=== PATIENT | male | born 1945 | race Caucasian/White ===

== ENCOUNTER 2017-10-05 10:20 | Emergency (ER) | payer OTHER ==
[~2017-10-05] VITALS: Ht 182.9 cm; Wt 82.0 kg
[~2017-10-05 10:20] MED LIST: ASPI-496 PO; CLOP75TA52; LOSA50TA2 PO; OMEP-110 PO; TRAM50TA2 PO
[2017-10-05 10:59] LABS: BASOPHILS # (AUTO) 0.01 x10^3/uL (0-0.1); BASOPHILS % (AUTO) 0 % (0-1); EOSINOPHILS # (AUTO) 0.03 x10^3/uL (0-0.4); EOSINOPHILS % (AUTO) 0 % (1-7); LYMPHOCYTES # (AUTO) 1.11 x10^3/uL (1-3.4); LYMPHOCYTES % (AUTO) 13 % (22-44); MD NO; MEAN CORPUSCULAR HEMOGLOBIN 32.8 pg (27.5-34.5); MEAN CORPUSCULAR HGB CONC 35.1 g/dL (33.2-36.2); MEAN CORPUSCULAR VOLUME 93.5 fL (81-97); MEAN PLATELET VOLUME 7.1 fL (7.4-10.4); MONOCYTES # (AUTO) 0.45 x10^3/uL (0.2-0.8); MONOCYTES % (AUTO) 5 % (2-9); NEUTROPHILS # (AUTO) 7.08 x10^3/uL (1.8-6.8); NEUTROPHILS % (AUTO) 82 % (42-75); PLATELET COUNT 398 x10^3/uL (130-400); RED BLOOD COUNT 4.79 x10^6/uL (4.38-5.82); RED CELL DISTRIBUTION WIDTH 12.9 % (9.4-14.8)
[2017-10-05] MEDS ORDERED: GABA300C10 PO (11:02)
[2017-10-05] MEDS ORDERED: AMLO10TA2 PO (11:02)
[2017-10-05] MEDS ORDERED: LOSA100T6 PO (11:02)
[2017-10-05 11:07] LABS: ANION GAP 10 mmol/L (5-15); CHLORIDE 94 mmol/L (98-107); CREATININE 0.94 mg/dL (0.7-1.3)
[2017-10-05] MEDS ORDERED: KETOROLAC 30 MG/1 ML ONE (11:43)
[2017-10-05 11:53] VITALS: BP 116/92
[2017-10-05] MEDS ORDERED: KETOROLAC 30 MG/1 ML IM ONE (12:00)
== END 2017-10-05 12:17 | disposition home or self-care (01) ==
LOC: ED 12:11
DX: G89.29 Other chronic pain (principal); M25.572 Pain in left ankle and joints of left foot; I10 Essential (primary) hypertension; F17.200 Nicotine dependence, unspecified, uncomplicated
CPT/HCPCS: 36415; 73610; 80048; 82040; 84550; 85025; 96372; 99285; J1885

== ENCOUNTER 2018-07-25 11:14 | Emergency (ER) | payer MEDICARE, OTHER ==
[~2018-07-25] VITALS: Ht 182.9 cm; Wt 75.9 kg
[~2018-07-25 11:14] MED LIST changes: +AMLO10TA8 PO; +GABA300C10 PO; +LOSA100T14 PO
[2018-07-25 11:24] VITALS: BP 157/97
[2018-07-25 12:20] LABS: BASOPHILS # (AUTO) 0.03 x10^3/uL (0-0.1); BASOPHILS % (AUTO) 0 % (0-1); EOSINOPHILS # (AUTO) 0.02 x10^3/uL (0-0.4); EOSINOPHILS % (AUTO) 0 % (1-7); LYMPHOCYTES # (AUTO) 1.63 x10^3/uL (1-3.4); LYMPHOCYTES % (AUTO) 14 % (22-44); MD NO; MEAN CORPUSCULAR HEMOGLOBIN 32.4 pg (27.5-34.5); MEAN CORPUSCULAR HGB CONC 33.8 g/dL (33.2-36.2); MEAN CORPUSCULAR VOLUME 95.8 fL (81-97); MEAN PLATELET VOLUME 7.2 fL (7.4-10.4); MONOCYTES % (AUTO) 7 % (2-9); NEUTROPHILS # (AUTO) 9.37 x10^3/uL (1.8-6.8); NEUTROPHILS % (AUTO) 79 % (42-75); PLATELET COUNT 378 x10^3/uL (130-400); RED BLOOD COUNT 4.96 x10^6/uL (4.38-5.82); RED CELL DISTRIBUTION WIDTH 13.9 % (9.4-14.8)
[2018-07-25 12:29] LABS: CHLORIDE 97 mmol/L (98-107)
[2018-07-25 12:36] LABS: ALANINE AMINOTRANSFERASE 25 U/L (12-78); ALBUMIN 3.9 g/dL (3.4-5.0); ALKALINE PHOSPHATASE 72 U/L (45-117); ANION GAP 8 mmol/L (5-15); BILIRUBIN,TOTAL 0.8 mg/dL (0.2-1.0); TOTAL PROTEIN 7.4 g/dL (6.4-8.2)
--- NOTE | 2018-07-25 13:10 | NUR ---
Received report from MOLLY Patel. All questions answered. Assuming care of pt. ANNIEN. No needs expressed.
--- NOTE | 2018-07-25 13:32 | NUR ---
Patient given discharge instructions and they have confirmed that they understand the instructions. Patient pushed in wheelchair by ED staff. Pt left with d/c paperwork, prescription, and all personal belongings.
== END 2018-07-25 13:35 | disposition home or self-care (01) ==
LOC: ED 13:33
DX: S92.355A Nondisplaced fracture of fifth metatarsal bone, left foot, initial encounter for closed fracture (principal); I10 Essential (primary) hypertension; F17.200 Nicotine dependence, unspecified, uncomplicated; W01.0XXA Fall on same level from slipping, tripping and stumbling without subsequent striking against object, initial encounter; Y93.89 Activity, other specified; Y92.002 Bathroom of unspecified non-institutional (private) residence as the place of occurrence of the external cause; Y99.8 Other external cause status
CPT/HCPCS: 36415; 80053; 85025; 99284

== ENCOUNTER 2018-07-31 08:44 | Emergency (ER) | payer MEDICARE ==
[~2018-07-31] VITALS: Ht 182.9 cm; Wt 76.0 kg
[2018-07-31] MEDS ORDERED: IBUPROFEN 200 MG TABLET PO ONE (10:30)
[2018-07-31] MEDS ORDERED: IBUPROFEN 200 MG TABLET ONE (10:31)
[2018-07-31 11:00] VITALS: BP 153/95
== END 2018-07-31 11:26 | disposition home or self-care (01) ==
LOC: ED 11:23
DX: M79.672 Pain in left foot (principal); I10 Essential (primary) hypertension; F17.200 Nicotine dependence, unspecified, uncomplicated
CPT/HCPCS: 99283

== ENCOUNTER 2019-02-03 11:08 | Inpatient (IN) | payer MEDICARE ==
[~2019-02-03] VITALS: Ht 182.9 cm; Wt 75.3 kg
--- NOTE | 2019-02-03 11:39 | NUR ---
pt biba to ed from home. c/o low back pain, left lower extrem weakness. Dr. Benítez at bedside for eval. weak L foot dorsiflexion. good rectal tone per md. plan for ct back. as
[2019-02-03] MEDS ORDERED: SODIUM CHLORIDE 0.9% 1,000 ML IV ONE (11:43)
[2019-02-03] MEDS ORDERED: MORPHINE SULFATE 4 MG/ML, 1ML ONE (11:56)
[2019-02-03] MEDS ORDERED: MORPHINE SULFATE 4 MG/ML, 1ML IVPush PRN (12:00)
[2019-02-03] MEDS ORDERED: SODIUM CHLORIDE FLUSH 10ML SYR IVF ONE (12:00)
--- NOTE | 2019-02-03 12:22 | NUR ---
labs sent, caregiver at bedside. per caregiver pt has low back pain x4 days, L ankle injury w/ pins x4 years, baseline limited movement in L foot.
--- NOTE | 2019-02-03 12:27 | NUR ---
TAKEN TO CT
[2019-02-03 12:32] LABS: BASOPHILS # (AUTO) 0.02 x10^3/uL (0-0.1); BASOPHILS % (AUTO) 0 % (0-1); EOSINOPHILS # (AUTO) 0.07 x10^3/uL (0-0.4); EOSINOPHILS % (AUTO) 1 % (1-7); LYMPHOCYTES % (AUTO) 9 % (22-44); MD NO; MEAN CORPUSCULAR HEMOGLOBIN 32.3 pg (27.5-34.5); MEAN CORPUSCULAR HGB CONC 33.6 g/dL (33.2-36.2); MEAN CORPUSCULAR VOLUME 95.8 fL (81-97); MEAN PLATELET VOLUME 7.7 fL (7.4-10.4); MONOCYTES # (AUTO) 0.68 x10^3/uL (0.2-0.8); MONOCYTES % (AUTO) 6 % (2-9); NEUTROPHILS # (AUTO) 8.96 x10^3/uL (1.8-6.8); NEUTROPHILS % (AUTO) 84 % (42-75); PLATELET COUNT 291 x10^3/uL (130-400); RED BLOOD COUNT 5.09 x10^6/uL (4.38-5.82); RED CELL DISTRIBUTION WIDTH 14.4 % (9.4-14.8)
[2019-02-03 12:43] LABS: ALBUMIN 3.6 g/dL (3.4-5.0); ANION GAP 9 mmol/L (5-15); CALCIUM 9.2 mg/dL (8.5-10.1); CHLORIDE 90 mmol/L (98-107); CREATININE 0.78 mg/dL (0.7-1.3)
[2019-02-03 12:45] LABS: ALANINE AMINOTRANSFERASE 26 U/L (12-78); ALKALINE PHOSPHATASE 91 U/L (45-117); BILIRUBIN,TOTAL 1.7 mg/dL (0.2-1.0); TOTAL PROTEIN 7.1 g/dL (6.4-8.2)
--- NOTE | 2019-02-03 12:52 | NUR ---
ALL RESULTS BACK AT THIS TIME, CHART UP FOR RECHECK
--- NOTE | 2019-02-03 13:03 | NUR ---
T12 COMPRESSION FRACTURE. THIS IS PARTIALLY SEEN. L3 AND L4 MILD COMPRESSION FRACTURES. SEVERE DEGENERATIVE DISC DISEASE.
--- NOTE | 2019-02-03 13:03 | NUR ---
pt to be admitted, pt aware and agrees.
--- NOTE | 2019-02-03 14:22 | NUR ---
Dr. Webb at bedside for eval.
[2019-02-03 14:56] VITALS: BP 161/96
[2019-02-03] MEDS ORDERED: SODIUM CHLORIDE 0.9% 1,000 ML IV SCH (15:06)
[2019-02-03] MEDS ORDERED: PROMETHAZINE 25 MG/ML, 1ML IM PRN (15:30)
[2019-02-03] MEDS ORDERED: LABETALOL 5MG/ML, 20ML IVPush PRN (15:30)
[2019-02-03] MEDS ORDERED: LIDODERM 5% PATCH TD PRN (15:30)
[2019-02-03] MEDS ORDERED: ONDANSETRON 2MG/ML, 2ML IVPush PRN (15:30)
[2019-02-03] MEDS ORDERED: METHOCARBAMOL 500 MG TABLET PO PRN (15:30)
[2019-02-03] MEDS ORDERED: ACETAMINOPHEN 325 MG TABLET PO PRN (15:30)
[2019-02-03] MEDS ORDERED: ENALAPRILAT 1.25 MG/ML, 2ML IVPush PRN (15:30)
[2019-02-03] MEDS: THIAMINE 100MG TABLET PO SCH (17:46)
[2019-02-03] MEDS: ENOXAPARIN 40 MG/0.4 ML SQ SCH (17:46)
[2019-02-03] MEDS: GABAPENTIN 100 MG CAPSULE PO SCH ×2 (17:47→21:54)
[2019-02-03] MEDS ORDERED: MAGNESIUM CITRATE 300ML ORAL SOL PO ONE (18:30)
[2019-02-03 18:48] VITALS: BP 152/78
[2019-02-04 01:18] VITALS: BP 130/77
[2019-02-04 05:16] LABS: BASOPHILS # (AUTO) 0.02 x10^3/uL (0-0.1); BASOPHILS % (AUTO) 0 % (0-1); EOSINOPHILS # (AUTO) 0.13 x10^3/uL (0-0.4); EOSINOPHILS % (AUTO) 2 % (1-7); LYMPHOCYTES # (AUTO) 1.26 x10^3/uL (1-3.4); LYMPHOCYTES % (AUTO) 15 % (22-44); MD NO; MEAN CORPUSCULAR HEMOGLOBIN 32.2 pg (27.5-34.5); MEAN CORPUSCULAR HGB CONC 33.3 g/dL (33.2-36.2); MEAN CORPUSCULAR VOLUME 96.5 fL (81-97); MEAN PLATELET VOLUME 7.7 fL (7.4-10.4); MONOCYTES # (AUTO) 0.69 x10^3/uL (0.2-0.8); MONOCYTES % (AUTO) 8 % (2-9); NEUTROPHILS # (AUTO) 6.35 x10^3/uL (1.8-6.8); NEUTROPHILS % (AUTO) 75 % (42-75); PLATELET COUNT 271 x10^3/uL (130-400); RED BLOOD COUNT 4.48 x10^6/uL (4.38-5.82); RED CELL DISTRIBUTION WIDTH 14.2 % (9.4-14.8)
[2019-02-04 05:25] LABS: ANION GAP 8 mmol/L (5-15); CALCIUM 8.7 mg/dL (8.5-10.1); CHLORIDE 96 mmol/L (98-107)
[2019-02-04 05:30] LABS: ALANINE AMINOTRANSFERASE 25 U/L (12-78); ALKALINE PHOSPHATASE 76 U/L (45-117); BILIRUBIN,TOTAL 1.4 mg/dL (0.2-1.0); CREATININE 0.72 mg/dL (0.7-1.3)
[2019-02-04 08:27] VITALS: BP 135/82
[2019-02-04] MEDS: OMEPRAZOLE 20 MG CAPSULE.DR PO SCH (09:49)
[2019-02-04] MEDS: AMLODIPINE 5 MG TABLET PO SCH (09:50)
[2019-02-04] MEDS: MULTIVITAMIN 1 TABLET PO SCH (09:50)
[2019-02-04] MEDS: LOSARTAN 50MG TABLET PO SCH (09:50)
[2019-02-04] MEDS: SENNA/DOCUSATE TABLET PO SCH (09:50)
[2019-02-04] MEDS: GABAPENTIN 100 MG CAPSULE PO SCH ×3 (09:50→20:56)
[2019-02-04] MEDS: THIAMINE 100MG TABLET PO SCH (09:50)
[2019-02-04] MEDS: ASPIRIN 81 MG TABLET EC PO SCH (09:50)
[2019-02-04] MEDS: FOLIC ACID 1 MG TABLET PO SCH (09:50)
[2019-02-04] MEDS: ENOXAPARIN 40 MG/0.4 ML SQ SCH (15:04)
[2019-02-04 15:30] VITALS: BP 133/76
[2019-02-04] MEDS: POLYETHYLENE GLYCOL 17 GM PACKET PO PRN (17:34)
[2019-02-04] MEDS: LACTULOSE 10 GM/15 ML UDC PO PRN (17:34)
[2019-02-04 18:37] VITALS: BP 146/87
[2019-02-05 01:16] VITALS: BP 155/75
[2019-02-05 05:59] LABS: BASOPHILS # (AUTO) 0.03 x10^3/uL (0-0.1); BASOPHILS % (AUTO) 0 % (0-1); EOSINOPHILS # (AUTO) 0.17 x10^3/uL (0-0.4); EOSINOPHILS % (AUTO) 2 % (1-7); LYMPHOCYTES # (AUTO) 1.25 x10^3/uL (1-3.4); LYMPHOCYTES % (AUTO) 14 % (22-44); MD NO; MEAN CORPUSCULAR HEMOGLOBIN 32.4 pg (27.5-34.5); MEAN CORPUSCULAR HGB CONC 33.1 g/dL (33.2-36.2); MEAN CORPUSCULAR VOLUME 97.7 fL (81-97); MEAN PLATELET VOLUME 7.5 fL (7.4-10.4); MONOCYTES % (AUTO) 10 % (2-9); NEUTROPHILS # (AUTO) 6.85 x10^3/uL (1.8-6.8); NEUTROPHILS % (AUTO) 75 % (42-75); PLATELET COUNT 255 x10^3/uL (130-400); RED BLOOD COUNT 4.25 x10^6/uL (4.38-5.82); RED CELL DISTRIBUTION WIDTH 14.5 % (9.4-14.8)
[2019-02-05 06:05] LABS: ANION GAP 8 mmol/L (5-15); CALCIUM 8.6 mg/dL (8.5-10.1); CHLORIDE 99 mmol/L (98-107); CREATININE 0.67 mg/dL (0.7-1.3)
[2019-02-05 07:35] VITALS: BP 147/84
[2019-02-05] MEDS: ASPIRIN 81 MG TABLET EC PO SCH (09:55)
[2019-02-05] MEDS: LOSARTAN 50MG TABLET PO SCH (09:55)
[2019-02-05] MEDS: THIAMINE 100MG TABLET PO SCH (09:55)
[2019-02-05] MEDS: GABAPENTIN 100 MG CAPSULE PO SCH ×3 (09:55→20:34)
[2019-02-05] MEDS: AMLODIPINE 5 MG TABLET PO SCH (09:55)
[2019-02-05] MEDS: SENNA/DOCUSATE TABLET PO SCH (09:55)
[2019-02-05] MEDS: FOLIC ACID 1 MG TABLET PO SCH (09:56)
[2019-02-05] MEDS: OMEPRAZOLE 20 MG CAPSULE.DR PO SCH (09:56)
[2019-02-05] MEDS: MULTIVITAMIN 1 TABLET PO SCH (09:56)
[2019-02-05 13:30] VITALS: BP 164/84
[2019-02-05] MEDS: BISACODYL 10 MG SUPP PR PRN (13:37)
[2019-02-05] MEDS: POLYETHYLENE GLYCOL 17 GM PACKET PO PRN (13:37)
[2019-02-05] MEDS: LACTULOSE 10 GM/15 ML UDC PO PRN (13:37)
[2019-02-05] MEDS: ENOXAPARIN 40 MG/0.4 ML SQ SCH (16:08)
[2019-02-05] MEDS ORDERED: MORPHINE SULFATE 4 MG/ML, 1ML IVPush PRN (18:30)
[2019-02-05 19:12] VITALS: BP 160/82
[2019-02-06 01:39] VITALS: BP 155/79
[2019-02-06 07:40] VITALS: BP 158/80
[2019-02-06] MEDS: MULTIVITAMIN 1 TABLET PO SCH (09:23)
[2019-02-06] MEDS: ASPIRIN 81 MG TABLET EC PO SCH (09:23)
[2019-02-06] MEDS: FOLIC ACID 1 MG TABLET PO SCH (09:24)
[2019-02-06] MEDS: AMLODIPINE 5 MG TABLET PO SCH (09:24)
[2019-02-06] MEDS: GABAPENTIN 100 MG CAPSULE PO SCH ×3 (09:24→20:28)
[2019-02-06] MEDS: THIAMINE 100MG TABLET PO SCH (09:24)
[2019-02-06] MEDS: LOSARTAN 50MG TABLET PO SCH (09:24)
[2019-02-06] MEDS: SENNA/DOCUSATE TABLET PO SCH (09:24)
[2019-02-06] MEDS: OMEPRAZOLE 20 MG CAPSULE.DR PO SCH (09:24)
[2019-02-06] MEDS: ENOXAPARIN 40 MG/0.4 ML SQ SCH (10:40)
[2019-02-06 13:48] VITALS: BP 151/73
[2019-02-06 18:52] VITALS: BP 164/79
[2019-02-07 01:07] VITALS: BP 147/93
[2019-02-07 07:10] VITALS: BP 162/76
[2019-02-07] MEDS: MULTIVITAMIN 1 TABLET PO SCH (08:33)
[2019-02-07] MEDS: LOSARTAN 50MG TABLET PO SCH (08:33)
[2019-02-07] MEDS: OMEPRAZOLE 20 MG CAPSULE.DR PO SCH (08:33)
[2019-02-07] MEDS: FOLIC ACID 1 MG TABLET PO SCH (08:33)
[2019-02-07] MEDS: AMLODIPINE 5 MG TABLET PO SCH (08:33)
[2019-02-07] MEDS: GABAPENTIN 100 MG CAPSULE PO SCH ×3 (08:33→21:31)
[2019-02-07] MEDS: THIAMINE 100MG TABLET PO SCH (08:33)
[2019-02-07] MEDS: ASPIRIN 81 MG TABLET EC PO SCH (08:33)
[2019-02-07] MEDS: SENNA/DOCUSATE TABLET PO SCH (09:00)
[2019-02-07 14:00] VITALS: BP 158/82
[2019-02-07] MEDS: ENOXAPARIN 40 MG/0.4 ML SQ SCH ×2 (15:30→16:34)
[2019-02-07 19:44] VITALS: BP 156/92
[2019-02-08 01:10] VITALS: BP 163/84
[2019-02-08 05:09] LABS: BASOPHILS % (AUTO) 0 % (0-1); EOSINOPHILS # (AUTO) 0.08 x10^3/uL (0-0.4); EOSINOPHILS % (AUTO) 1 % (1-7); LYMPHOCYTES # (AUTO) 0.96 x10^3/uL (1-3.4); LYMPHOCYTES % (AUTO) 9 % (22-44); MD NO; MEAN CORPUSCULAR HEMOGLOBIN 32.2 pg (27.5-34.5); MEAN CORPUSCULAR HGB CONC 33.1 g/dL (33.2-36.2); MEAN CORPUSCULAR VOLUME 97.3 fL (81-97); MEAN PLATELET VOLUME 7.5 fL (7.4-10.4); MONOCYTES # (AUTO) 0.67 x10^3/uL (0.2-0.8); MONOCYTES % (AUTO) 6 % (2-9); NEUTROPHILS # (AUTO) 9.61 x10^3/uL (1.8-6.8); NEUTROPHILS % (AUTO) 85 % (42-75); PLATELET COUNT 298 x10^3/uL (130-400); RED BLOOD COUNT 4.54 x10^6/uL (4.38-5.82)
[2019-02-08 05:15] LABS: ALBUMIN 2.8 g/dL (3.4-5.0); ANION GAP 7 mmol/L (5-15); CALCIUM 8.7 mg/dL (8.5-10.1); CHLORIDE 98 mmol/L (98-107)
[2019-02-08 05:18] LABS: ALANINE AMINOTRANSFERASE 23 U/L (12-78); ALKALINE PHOSPHATASE 88 U/L (45-117); BILIRUBIN,TOTAL 1.3 mg/dL (0.2-1.0); CREATININE 0.64 mg/dL (0.7-1.3); TOTAL PROTEIN 6.3 g/dL (6.4-8.2)
[2019-02-08 08:24] VITALS: BP 178/68
[2019-02-08] MEDS ORDERED: POTASSIUM CHLORIDE 40 MEQ in SODIUM CHLORIDE 0.9% 500 ML IV ONE (08:30)
[2019-02-08] MEDS: ASPIRIN 81 MG TABLET EC PO SCH (08:51)
[2019-02-08] MEDS: LOSARTAN 50MG TABLET PO SCH (08:51)
[2019-02-08] MEDS: FOLIC ACID 1 MG TABLET PO SCH (08:51)
[2019-02-08] MEDS: GABAPENTIN 100 MG CAPSULE PO SCH ×3 (08:52→20:00)
[2019-02-08] MEDS: AMLODIPINE 5 MG TABLET PO SCH (08:52)
[2019-02-08] MEDS ORDERED: FENTANYL PF 100 MCG/2ML ONE ×2 (08:55→09:39)
[2019-02-08] MEDS ORDERED: PROPOFOL 50 ML ONE (08:55)
[2019-02-08] MEDS ORDERED: ROCURONIUM 10MG/ML,5ML ONE (08:56)
[2019-02-08] MEDS ORDERED: SUCCINYLCHOLINE 20 MG/ML, 10ML ONE (08:56)
[2019-02-08] MEDS ORDERED: NEOSTIGMINE 1 MG/ML, 10ML ONE (08:56)
[2019-02-08] MEDS ORDERED: ONDANSETRON 2MG/ML, 2ML ONE (08:56)
[2019-02-08] MEDS ORDERED: GLYCOPYRROLATE 0.2MG/1ML, 5ML ONE (08:56)
[2019-02-08] MEDS ORDERED: DEXAMETHASONE 4 MG/ML, 1ML ONE (08:56)
[2019-02-08] MEDS ORDERED: PROPOFOL 10 MG/ML, 20ML ONE (08:56)
[2019-02-08] MEDS ORDERED: CEFAZOLIN 1,000 MG ONE (08:56)
[2019-02-08] MEDS: THIAMINE 100MG TABLET PO SCH (08:58)
[2019-02-08] MEDS: SENNA/DOCUSATE TABLET PO SCH (08:58)
[2019-02-08] MEDS: LACTOBACILLUS CHEW TABLET PO SCH ×3 (08:58→20:00)
[2019-02-08] MEDS: OMEPRAZOLE 20 MG CAPSULE.DR PO SCH (08:58)
[2019-02-08] MEDS: MULTIVITAMIN 1 TABLET PO SCH (08:58)
[2019-02-08] MEDS ORDERED: LIDOCAINE-MPF 2% ,5ML ONE (08:59)
[2019-02-08] MEDS ORDERED: SODIUM CHLORIDE 0.9% PF 10ML ONE (08:59)
[2019-02-08] MEDS ORDERED: KETOROLAC 30 MG/1 ML ONE (09:45)
[2019-02-08] MEDS ORDERED: EPINEPHRINE 1 MG/ML, 1ML ONE (09:53)
[2019-02-08] MEDS ORDERED: BUPIVACAINE/PF 0.5% ONE (09:53)
[2019-02-08] MEDS ORDERED: PHENYLEPHRINE 10 MG/ML ONE (10:07)
[2019-02-08] MEDS ORDERED: BUPIVACAINE/PF-EPI 0.5% 1:200K INFIL ONE (10:12)
[2019-02-08] MEDS ORDERED: LABETALOL 5MG/ML, 20ML IV PRN (11:00)
[2019-02-08] MEDS ORDERED: hydrALAzine 20 MG/ML, 1ML IV PRN (11:00)
[2019-02-08] MEDS ORDERED: OXYcodone 5 MG/5 ML ORAL.SOL UDC PO PRN (11:00)
[2019-02-08] MEDS ORDERED: ACETAMINOPHEN 325 MG TABLET PO PRN (11:00)
[2019-02-08] MEDS ORDERED: ONDANSETRON 2MG/ML, 2ML IV PRN (11:00)
[2019-02-08] MEDS ORDERED: EPHEDRINE 50 MG/ML, 1ML IVPush PRN (11:00)
[2019-02-08] MEDS ORDERED: PROMETHAZINE 25 MG/ML, 1ML IV PRN (11:00)
[2019-02-08] MEDS ORDERED: FENTANYL PF 100 MCG/2ML IV PRN (11:00)
[2019-02-08] MEDS ORDERED: HYDROmorphone 2 MG/ML, 1ML IVPush PRN (11:00)
[2019-02-08] MEDS ORDERED: MEPERIDINE/PF 25MG/ML,1ML IVPush PRN (11:00)
[2019-02-08] MEDS ORDERED: MORPHINE SULFATE 4 MG/ML, 1ML IVPush PRN (12:30)
[2019-02-08 12:45] VITALS: BP 152/77
[2019-02-08] MEDS: ENOXAPARIN 40 MG/0.4 ML SQ SCH (13:47)
[2019-02-08] MEDS: ACETAMINOPHEN 325 MG TABLET PO SCH ×2 (14:04→19:41)
[2019-02-08 14:17] VITALS: BP 123/71
[2019-02-08 19:00] VITALS: BP 133/79
[2019-02-08] MEDS: ATORVASTATIN 40 MG TABLET PO SCH (20:00)
[2019-02-09 00:47] VITALS: BP 146/83
[2019-02-09] MEDS: ACETAMINOPHEN 325 MG TABLET PO SCH ×4 (02:00→21:59)
[2019-02-09 04:40] LABS: ANION GAP 7 mmol/L (5-15); CALCIUM 8.7 mg/dL (8.5-10.1); CHLORIDE 101 mmol/L (98-107)
[2019-02-09 04:41] LABS: CREATININE 0.72 mg/dL (0.7-1.3)
[2019-02-09] MEDS: ENOXAPARIN 40 MG/0.4 ML SQ SCH (05:28)
[2019-02-09 06:55] VITALS: BP 156/84
[2019-02-09] MEDS: SODIUM CHLORIDE 0.9% 1,000 ML IV SCH ×2 (09:18→23:48)
[2019-02-09] MEDS: ASPIRIN 81 MG TABLET EC PO SCH (09:18)
[2019-02-09] MEDS: GABAPENTIN 100 MG CAPSULE PO SCH ×3 (09:18→21:59)
[2019-02-09] MEDS: THIAMINE 100MG TABLET PO SCH (09:18)
[2019-02-09] MEDS: MULTIVITAMIN 1 TABLET PO SCH (09:18)
[2019-02-09] MEDS: FOLIC ACID 1 MG TABLET PO SCH (09:18)
[2019-02-09] MEDS: LACTOBACILLUS CHEW TABLET PO SCH ×3 (09:18→21:59)
[2019-02-09] MEDS: CARVEDILOL 3.125 MG TABLET PO SCH ×2 (09:18→17:45)
[2019-02-09] MEDS: SENNA/DOCUSATE TABLET PO SCH (09:18)
[2019-02-09] MEDS: OMEPRAZOLE 20 MG CAPSULE.DR PO SCH (09:18)
[2019-02-09] MEDS: LOSARTAN 50MG TABLET PO SCH (09:19)
[2019-02-09 14:09] VITALS: BP 137/81
[2019-02-09 18:59] VITALS: BP 154/74
[2019-02-09] MEDS: ATORVASTATIN 40 MG TABLET PO SCH (21:59)
[2019-02-10 01:12] VITALS: BP 135/81
[2019-02-10 04:52] VITALS: BP 171/87
[2019-02-10] MEDS: ENOXAPARIN 40 MG/0.4 ML SQ SCH (04:57)
[2019-02-10] MEDS: CARVEDILOL 3.125 MG TABLET PO SCH ×2 (04:57→16:55)
[2019-02-10] MEDS: ACETAMINOPHEN 325 MG TABLET PO SCH ×4 (04:57→21:45)
[2019-02-10 05:06] LABS: BASOPHILS # (AUTO) 0.04 x10^3/uL (0-0.1); BASOPHILS % (AUTO) 0 % (0-1); EOSINOPHILS % (AUTO) 2 % (1-7); LYMPHOCYTES # (AUTO) 1.47 x10^3/uL (1-3.4); LYMPHOCYTES % (AUTO) 15 % (22-44); MD NO; MEAN CORPUSCULAR HEMOGLOBIN 32.5 pg (27.5-34.5); MEAN CORPUSCULAR HGB CONC 33.3 g/dL (33.2-36.2); MEAN CORPUSCULAR VOLUME 97.7 fL (81-97); MEAN PLATELET VOLUME 7.4 fL (7.4-10.4); MONOCYTES # (AUTO) 0.74 x10^3/uL (0.2-0.8); MONOCYTES % (AUTO) 7 % (2-9); NEUTROPHILS # (AUTO) 7.72 x10^3/uL (1.8-6.8); NEUTROPHILS % (AUTO) 76 % (42-75); PLATELET COUNT 358 x10^3/uL (130-400); RED BLOOD COUNT 4.38 x10^6/uL (4.38-5.82); RED CELL DISTRIBUTION WIDTH 14.4 % (9.4-14.8)
[2019-02-10 05:11] LABS: CHLORIDE 98 mmol/L (98-107)
[2019-02-10 05:15] LABS: ANION GAP 7 mmol/L (5-15); CALCIUM 8.7 mg/dL (8.5-10.1); CREATININE 0.71 mg/dL (0.7-1.3)
[2019-02-10 07:39] VITALS: BP 160/88
[2019-02-10] MEDS ORDERED: POTASSIUM CHLORIDE 20 MEQ TAB.ER.PRT PO ONE (08:00)
[2019-02-10] MEDS ORDERED: LOSARTAN 25MG TABLET ONE (08:38)
[2019-02-10] MEDS: THIAMINE 100MG TABLET PO SCH (08:40)
[2019-02-10] MEDS: OMEPRAZOLE 20 MG CAPSULE.DR PO SCH (08:41)
[2019-02-10] MEDS: ISOSORBIDE DINITRATE 10 MG TABLET PO SCH ×3 (08:41→20:15)
[2019-02-10] MEDS: MULTIVITAMIN 1 TABLET PO SCH (08:42)
[2019-02-10] MEDS: FOLIC ACID 1 MG TABLET PO SCH (08:42)
[2019-02-10] MEDS: SENNA/DOCUSATE TABLET PO SCH (08:42)
[2019-02-10] MEDS: GABAPENTIN 100 MG CAPSULE PO SCH ×3 (08:42→20:15)
[2019-02-10] MEDS: LACTOBACILLUS CHEW TABLET PO SCH ×3 (08:42→20:15)
[2019-02-10] MEDS: ASPIRIN 81 MG TABLET EC PO SCH (08:44)
[2019-02-10] MEDS: LOSARTAN 50MG TABLET PO SCH (08:44)
[2019-02-10] MEDS: LACTULOSE 10 GM/15 ML UDC PO PRN (08:45)
[2019-02-10] MEDS ORDERED: ISOS10TA2 PO (10:00)
[2019-02-10] MEDS ORDERED: ACID1TAB7 PO (10:00)
[2019-02-10] MEDS ORDERED: THIA100T67 PO (10:00)
[2019-02-10] MEDS ORDERED: CARV3.1212 PO (10:00)
[2019-02-10] MEDS ORDERED: ATOR40TA78 PO (10:00)
[2019-02-10] MEDS ORDERED: ACET325T26 PO (10:00)
[2019-02-10] MEDS ORDERED: ALEN10TA7 PO (10:16)
[2019-02-10] MEDS ORDERED: CALC1TAB68 PO (10:16)
[2019-02-10 14:00] VITALS: BP 136/74
[2019-02-10] MEDS: SODIUM CHLORIDE 0.9% 1,000 ML IV SCH (16:56)
[2019-02-10] MEDS: BISACODYL 10 MG SUPP PR PRN (17:45)
[2019-02-10 18:54] VITALS: BP 136/75
[2019-02-10] MEDS: ATORVASTATIN 40 MG TABLET PO SCH (20:15)
[2019-02-11 01:14] VITALS: BP 147/75
[2019-02-11] MEDS: ACETAMINOPHEN 325 MG TABLET PO SCH ×4 (03:38→20:48)
[2019-02-11] MEDS: ENOXAPARIN 40 MG/0.4 ML SQ SCH (05:38)
[2019-02-11] MEDS: CARVEDILOL 3.125 MG TABLET PO SCH ×2 (05:38→18:06)
[2019-02-11 07:29] VITALS: BP 157/85
[2019-02-11] MEDS ORDERED: POTASSIUM CHLORIDE 20 MEQ TAB.ER.PRT PO ONE (08:00)
[2019-02-11] MEDS: THIAMINE 100MG TABLET PO SCH (08:07)
[2019-02-11] MEDS: OMEPRAZOLE 20 MG CAPSULE.DR PO SCH (08:07)
[2019-02-11] MEDS: ISOSORBIDE DINITRATE 10 MG TABLET PO SCH ×3 (08:07→20:48)
[2019-02-11] MEDS: GABAPENTIN 100 MG CAPSULE PO SCH ×3 (08:07→20:48)
[2019-02-11] MEDS: MULTIVITAMIN 1 TABLET PO SCH (08:07)
[2019-02-11] MEDS: FOLIC ACID 1 MG TABLET PO SCH (08:07)
[2019-02-11] MEDS: ASPIRIN 81 MG TABLET EC PO SCH (08:07)
[2019-02-11] MEDS: LACTOBACILLUS CHEW TABLET PO SCH ×3 (08:08→20:48)
[2019-02-11] MEDS: SENNA/DOCUSATE TABLET PO SCH (08:08)
[2019-02-11] MEDS: LOSARTAN 50MG TABLET PO SCH (08:35)
[2019-02-11 13:31] VITALS: BP 159/79
[2019-02-11 19:19] VITALS: BP_SYST 174; BP_SYST 177; BP_DIAS 80; BP_DIAS 81
[2019-02-11] MEDS: ATORVASTATIN 40 MG TABLET PO SCH (20:48)
[2019-02-12 01:16] VITALS: BP 154/78
[2019-02-12] MEDS: ACETAMINOPHEN 325 MG TABLET PO SCH ×3 (02:52→14:53)
[2019-02-12] MEDS: SODIUM CHLORIDE 0.9% 1,000 ML IV SCH (04:52)
[2019-02-12] MEDS: CARVEDILOL 3.125 MG TABLET PO SCH (06:13)
[2019-02-12] MEDS: ENOXAPARIN 40 MG/0.4 ML SQ SCH (06:18)
[2019-02-12 07:39] VITALS: BP 146/78
[2019-02-12] MEDS: OMEPRAZOLE 20 MG CAPSULE.DR PO SCH (08:40)
[2019-02-12] MEDS: GABAPENTIN 100 MG CAPSULE PO SCH ×2 (08:41→14:54)
[2019-02-12] MEDS: FOLIC ACID 1 MG TABLET PO SCH (08:41)
[2019-02-12] MEDS: SENNA/DOCUSATE TABLET PO SCH (08:41)
[2019-02-12] MEDS: MULTIVITAMIN 1 TABLET PO SCH (08:41)
[2019-02-12] MEDS: LACTOBACILLUS CHEW TABLET PO SCH ×2 (08:41→14:53)
[2019-02-12] MEDS: ISOSORBIDE DINITRATE 10 MG TABLET PO SCH ×2 (08:41→14:53)
[2019-02-12] MEDS: ASPIRIN 81 MG TABLET EC PO SCH (08:41)
[2019-02-12] MEDS: THIAMINE 100MG TABLET PO SCH (08:41)
[2019-02-12 08:58] VITALS: BP 142/78
[2019-02-12] MEDS: LOSARTAN 50MG TABLET PO SCH (08:58)
[2019-02-12] MEDS ORDERED: SODIUM CHLORIDE 0.9% 1,000 ML IV SCH (09:00)
[2019-02-12 13:41] VITALS: BP 150/87
== END 2019-02-12 17:09 | DRG 478 ==
LOC: ED 12:58 → EDIP 13:02 → INTOOBSV 13:02 → UNDOADMOB 13:02 → ED 13:29 → SUATTDRO 14:21 → 3N 14:32 → EDIP 14:32 → 3N 15:06 → OBSVTOIN 02-05 11:30 → 4NE 02-08 11:53
PROVIDERS: ADMIT Internal Medicine; ATTEND Internal Medicine
PROC: 0Q903ZX Drainage of Lumbar Vertebra, Percutaneous Approach, Diagnostic (ICD-10-PCS; 2019-02-08)
PROC: 0PU43JZ Supplement Thoracic Vertebra with Synthetic Substitute, Percutaneous Approach (ICD-10-PCS; 2019-02-08)
PROC: 0QS03ZZ Reposition Lumbar Vertebra, Percutaneous Approach (ICD-10-PCS; 2019-02-08)
PROC: 4A11X4G Monitoring of Peripheral Nervous Electrical Activity, Intraoperative, External Approach (ICD-10-PCS; 2019-02-08)
PROC: 0QU03JZ Supplement Lumbar Vertebra with Synthetic Substitute, Percutaneous Approach (ICD-10-PCS; 2019-02-08)
PROC: 0PS43ZZ Reposition Thoracic Vertebra, Percutaneous Approach (ICD-10-PCS; principal; 2019-02-08 09:00)
DX: M80.08XA Age-related osteoporosis with current pathological fracture, vertebra(e), initial encounter for fracture (principal); I47.1 Supraventricular tachycardia; E87.1 Hypo-osmolality and hyponatremia; E87.6 Hypokalemia; F10.20 Alcohol dependence, uncomplicated; F17.210 Nicotine dependence, cigarettes, uncomplicated; G62.9 Polyneuropathy, unspecified; G89.29 Other chronic pain; I10 Essential (primary) hypertension; I16.0 Hypertensive urgency; I73.9 Peripheral vascular disease, unspecified; J44.9 Chronic obstructive pulmonary disease, unspecified; K59.00 Constipation, unspecified; M21.372 Foot drop, left foot; M48.04 Spinal stenosis, thoracic region; M48.061 Spinal stenosis, lumbar region without neurogenic claudication; M54.16 Radiculopathy, lumbar region; Z82.49 Family history of ischemic heart disease and other diseases of the circulatory system; Z83.3 Family history of diabetes mellitus; Z85.46 Personal history of malignant neoplasm of prostate; Z92.3 Personal history of irradiation
CPT/HCPCS: 36415; 72072; 72100; 72131; 72148; 80048; 80053; 83735; 84100; 85025; 88307; 88311; 99285; C1713; G0378; J0171; J0690; J1100; J1650; J1885; J2405; J2704; J2710; J3010; J0330; J2270; J2370; J7030

== ENCOUNTER 2019-03-05 20:37 | Emergency (ER) | payer MEDICARE ==
[~2019-03-05] VITALS: Ht 182.9 cm; Wt 74.0 kg
[~2019-03-05 20:37] MED LIST changes: +ACET325T26 PO; +ACID1TAB7 PO; +ALEN10TA7 PO; +ATOR40TA78 PO; +CALC1TAB68 PO; +CARV3.1212 PO; +ISOS10TA2 PO; +THIA100T67 PO
--- NOTE | 2019-03-05 20:48 | NUR ---
BIB [facility]. PT C/O CONSTIPATION X4 DAYS. HAS TAKEN STOOL SOFTENERS W/O SUCCESS. ACUTE ON CHRONIC LBP. CONNECTED TO MONITORING. CALL LIGHT IN REACH. AWAITNG ORDERS AT THIS TIME.
--- NOTE | 2019-03-05 21:31 | NUR ---
PT AMBULATED TO RESTROOM WITH STEADY GAIT AND WALKER.
[2019-03-05] MEDS ORDERED: ACETAMINOPHEN 325 MG TABLET PO ONE (22:00)
--- NOTE | 2019-03-05 22:08 | NUR ---
IV START. LABS DRAWN. PT RESTING COMFORTABLY ON GURNEY. KAJAL.
--- NOTE | 2019-03-05 22:09 | NUR ---
CT PENDING LAB/CREATINE.
[2019-03-05] MEDS ORDERED: ACETAMINOPHEN 325 MG TABLET ONE (22:10)
--- NOTE | 2019-03-05 22:13 | NUR ---
MEDS ADMIN PER APR.
[2019-03-05 22:22] LABS: BASOPHILS # (AUTO) 0.03 x10^3/uL (0-0.1); BASOPHILS % (AUTO) 0 % (0-1); EOSINOPHILS # (AUTO) 0.13 x10^3/uL (0-0.4); EOSINOPHILS % (AUTO) 1 % (1-7); LYMPHOCYTES # (AUTO) 1.58 x10^3/uL (1-3.4); LYMPHOCYTES % (AUTO) 11 % (22-44); MD NO; MEAN CORPUSCULAR HEMOGLOBIN 31.9 pg (27.5-34.5); MEAN CORPUSCULAR HGB CONC 33.5 g/dL (33.2-36.2); MEAN PLATELET VOLUME 7.9 fL (7.4-10.4); MONOCYTES # (AUTO) 0.86 x10^3/uL (0.2-0.8); MONOCYTES % (AUTO) 6 % (2-9); NEUTROPHILS # (AUTO) 12.47 x10^3/uL (1.8-6.8); NEUTROPHILS % (AUTO) 83 % (42-75); PLATELET COUNT 261 x10^3/uL (130-400); RED BLOOD COUNT 4.95 x10^6/uL (4.38-5.82); RED CELL DISTRIBUTION WIDTH 13.8 % (9.4-14.8)
[2019-03-05 22:32] LABS: ALANINE AMINOTRANSFERASE 21 U/L (12-78); ALBUMIN 3.4 g/dL (3.4-5.0); ANION GAP 8 mmol/L (5-15); CALCIUM 9.2 mg/dL (8.5-10.1); CHLORIDE 97 mmol/L (98-107); CREATININE 0.69 mg/dL (0.7-1.3)
[2019-03-05 22:34] LABS: ALKALINE PHOSPHATASE 159 U/L (45-117); BILIRUBIN,TOTAL 0.7 mg/dL (0.2-1.0)
--- NOTE | 2019-03-05 22:43 | NUR ---
CT NOTIFIED THAT LAB RESULTS ARE BACK.
--- NOTE | 2019-03-05 23:09 | NUR ---
PT AMBULATED TO RESTROOM AND BACK. PT TAKEN TO CT.
--- NOTE | 2019-03-05 23:10 | NUR ---
RECEIVED NEW ORDER FOR UA.
[2019-03-05] MEDS ORDERED: OMNIPAQUE 350 MG/ML, 100ML BOTTLE ONE (23:22)
--- NOTE | 2019-03-05 23:22 | NUR ---
PT BACK FROM CT. PT NOTIFIED OF NEED FOR URINE SAMPLE.
--- NOTE | 2019-03-06 00:19 | NUR ---
Pt ambulated to restroom for urine sample. Urine sent. Pt returned to [facility]. Warm blankets provided. Call light within reach.
[2019-03-06 00:21] VITALS: BP 141/88
[2019-03-06] MEDS ORDERED: HYDROcodone/APAP 5/325 TABLET PO ONE (00:30)
[2019-03-06 00:31] LABS: MICROSCOPIC NOT IND
[2019-03-06 00:34] LABS: CULTURE INDICATED? NO
--- NOTE | 2019-03-06 00:58 | NUR ---
at bedside. Pt offered norco ordered by PA. Pt wants to think about it before taking it.
[2019-03-06] MEDS ORDERED: POLYETHYLENE GLYCOL 17 GM PACKET ONE (01:09)
[2019-03-06] MEDS ORDERED: DOCUSATE 100 MG CAPSULE ONE (01:09)
[2019-03-06] MEDS ORDERED: POLYETHYLENE GLYCOL 17 GM PACKET PO ONE ×2 (01:30→04:30)
[2019-03-06] MEDS ORDERED: PINK LADY ENEMA 490 ML BOTTLE PR ONE (01:30)
--- NOTE | 2019-03-06 02:05 | NUR ---
Pt did not tolerate enema. Pt immediately let enema go. Pt now sitting on commode. Bed and floor cleaned.
--- NOTE | 2019-03-06 02:20 | NUR ---
MD updated. Plan to wait to see if pt has BM. Pt aware and agreeable.
--- NOTE | 2019-03-06 03:03 | NUR ---
[facility]
--- NOTE | 2019-03-06 03:12 | NUR ---
Pt awakened. Pt reports he feels "shitty" but does not want to get up to go the bathroom/need to poop.
--- NOTE | 2019-03-06 04:12 | NUR ---
Pt ambulatory to restroom.
--- NOTE | 2019-03-06 04:19 | NUR ---
Pt reports two episodes of watery poop. Pt now wanting previously offered pain medication for back pain.
[2019-03-06] MEDS ORDERED: HYDROcodone/APAP 5/325 TABLET ONE (04:21)
--- NOTE | 2019-03-06 04:29 | NUR ---
Pt aware of plan for d/c. Pt given his phone to call friend for a ride.
[2019-03-06] MEDS ORDERED: POLYETHYLENE GLYCOL 17 GM PACKET NG ONE (04:30)
--- NOTE | 2019-03-06 05:06 | NUR ---
Pt dc'd to self care. Education provided including prescriptions, fluids, follow-up and S/Sx to return. Pt VU. Pt given cab voucher. Pt ambulated out of ER.
[2019-03-06] MEDS ORDERED: DOCUSATE 100 MG CAPSULE PO SCH (09:00)
== END 2019-03-06 05:09 | disposition home or self-care (01) ==
LOC: ED 20:57
DX: R10.84 Generalized abdominal pain (principal); K59.00 Constipation, unspecified; M54.5 Low back pain; I10 Essential (primary) hypertension
CPT/HCPCS: 36415; 74177; 80053; 81003; 83690; 85025; 99284; Q9967

== ENCOUNTER → 2019-03-26 | Outpatient (CLI) | payer MEDICARE ==
[~2019-03-26] MED LIST changes: +ALEN10TA10 PO; -ALEN10TA7 PO
== END | disposition home or self-care (01) ==
LOC: RAD 09:47
PROVIDERS: ATTEND Orthopaedic Surgery Orthopaedic Surgery of the Spine
DX: S22.089A Unspecified fracture of T11-T12 vertebra, initial encounter for closed fracture (principal); S32.019A Unspecified fracture of first lumbar vertebra, initial encounter for closed fracture; M47.815 Spondylosis without myelopathy or radiculopathy, thoracolumbar region; M48.05 Spinal stenosis, thoracolumbar region; M51.27 Other intervertebral disc displacement, lumbosacral region; M41.86 Other forms of scoliosis, lumbar region; R60.9 Edema, unspecified; X58.XXXA Exposure to other specified factors, initial encounter; Y93.89 Activity, other specified; Y92.89 Other specified places as the place of occurrence of the external cause; Y99.8 Other external cause status
CPT/HCPCS: 72146; 72148

== ENCOUNTER → 2020-05-09 | Outpatient (CLI) | payer MEDICARE ==
[~2020-05-09] MED LIST changes: +AMLO-211 PO; -AMLO10TA8 PO
== END | disposition home or self-care (01) ==
LOC: WOUND 13:57
PROVIDERS: ATTEND Internal Medicine
DX: I70.245 Atherosclerosis of native arteries of left leg with ulceration of other part of foot (principal); L97.521 Non-pressure chronic ulcer of other part of left foot limited to breakdown of skin; I70.244 Atherosclerosis of native arteries of left leg with ulceration of heel and midfoot; L97.421 Non-pressure chronic ulcer of left heel and midfoot limited to breakdown of skin; L84 Corns and callosities; J44.9 Chronic obstructive pulmonary disease, unspecified; I10 Essential (primary) hypertension; E78.5 Hyperlipidemia, unspecified; K21.9 Gastro-esophageal reflux disease without esophagitis; M81.0 Age-related osteoporosis without current pathological fracture; M21.372 Foot drop, left foot; G90.09 Other idiopathic peripheral autonomic neuropathy; K70.9 Alcoholic liver disease, unspecified; M48.05 Spinal stenosis, thoracolumbar region; M47.815 Spondylosis without myelopathy or radiculopathy, thoracolumbar region; M48.061 Spinal stenosis, lumbar region without neurogenic claudication; F17.210 Nicotine dependence, cigarettes, uncomplicated; Z85.46 Personal history of malignant neoplasm of prostate; Z99.81 Dependence on supplemental oxygen; Z98.49 Cataract extraction status, unspecified eye
CPT/HCPCS: G0463

== ENCOUNTER → 2020-05-16 | Outpatient (CLI) | payer MEDICARE | END | disposition home or self-care (01) | LOC: WOUND 13:54 | PROVIDERS: ATTEND Internal Medicine | DX: I70.245 Atherosclerosis of native arteries of left leg with ulceration of other part of foot (principal); L97.522 Non-pressure chronic ulcer of other part of left foot with fat layer exposed; I70.244 Atherosclerosis of native arteries of left leg with ulceration of heel and midfoot; L97.422 Non-pressure chronic ulcer of left heel and midfoot with fat layer exposed; L84 Corns and callosities; J44.9 Chronic obstructive pulmonary disease, unspecified; I10 Essential (primary) hypertension; E78.5 Hyperlipidemia, unspecified; K21.9 Gastro-esophageal reflux disease without esophagitis; M81.0 Age-related osteoporosis without current pathological fracture; M21.372 Foot drop, left foot; G90.09 Other idiopathic peripheral autonomic neuropathy; K70.9 Alcoholic liver disease, unspecified; M48.05 Spinal stenosis, thoracolumbar region; M47.815 Spondylosis without myelopathy or radiculopathy, thoracolumbar region; M48.061 Spinal stenosis, lumbar region without neurogenic claudication; F17.210 Nicotine dependence, cigarettes, uncomplicated; Z85.46 Personal history of malignant neoplasm of prostate; Z99.81 Dependence on supplemental oxygen; Z98.49 Cataract extraction status, unspecified eye | CPT/HCPCS: 97597 ==

== ENCOUNTER 2020-05-23 13:56 | Outpatient (CLI) | payer MEDICARE | END 2020-05-23 23:59 | disposition home or self-care (01) | LOC: WOUND 13:56 | PROVIDERS: ATTEND Internal Medicine | DX: I70.245 Atherosclerosis of native arteries of left leg with ulceration of other part of foot (principal); L97.522 Non-pressure chronic ulcer of other part of left foot with fat layer exposed; I70.244 Atherosclerosis of native arteries of left leg with ulceration of heel and midfoot; L97.422 Non-pressure chronic ulcer of left heel and midfoot with fat layer exposed; L84 Corns and callosities; J44.9 Chronic obstructive pulmonary disease, unspecified; I10 Essential (primary) hypertension; E78.5 Hyperlipidemia, unspecified; K21.9 Gastro-esophageal reflux disease without esophagitis; M81.0 Age-related osteoporosis without current pathological fracture; M21.372 Foot drop, left foot; G90.09 Other idiopathic peripheral autonomic neuropathy; K70.9 Alcoholic liver disease, unspecified; M48.05 Spinal stenosis, thoracolumbar region; M47.815 Spondylosis without myelopathy or radiculopathy, thoracolumbar region; M48.061 Spinal stenosis, lumbar region without neurogenic claudication; F17.210 Nicotine dependence, cigarettes, uncomplicated; Z85.46 Personal history of malignant neoplasm of prostate; Z99.81 Dependence on supplemental oxygen; Z98.49 Cataract extraction status, unspecified eye | CPT/HCPCS: 97597 ==

== ENCOUNTER 2020-05-25 12:30 | Outpatient (CLI) | payer MEDICARE | END 2020-05-25 23:59 | disposition home or self-care (01) | LOC: CVU 12:30 | PROVIDERS: ATTEND Internal Medicine | DX: I70.203 Unspecified atherosclerosis of native arteries of extremities, bilateral legs (principal); L97.522 Non-pressure chronic ulcer of other part of left foot with fat layer exposed; I77.1 Stricture of artery | CPT/HCPCS: 93922; 93925; 93970 ==

== ENCOUNTER 2020-05-30 13:55 | Outpatient (CLI) | payer MEDICARE | END 2020-05-30 23:59 | disposition home or self-care (01) | LOC: WOUND 13:55 | PROVIDERS: ATTEND Internal Medicine | DX: I70.245 Atherosclerosis of native arteries of left leg with ulceration of other part of foot (principal); L97.522 Non-pressure chronic ulcer of other part of left foot with fat layer exposed; I70.244 Atherosclerosis of native arteries of left leg with ulceration of heel and midfoot; L97.422 Non-pressure chronic ulcer of left heel and midfoot with fat layer exposed; L84 Corns and callosities; J44.9 Chronic obstructive pulmonary disease, unspecified; I10 Essential (primary) hypertension; E78.5 Hyperlipidemia, unspecified; K21.9 Gastro-esophageal reflux disease without esophagitis; M81.0 Age-related osteoporosis without current pathological fracture; M21.372 Foot drop, left foot; G90.09 Other idiopathic peripheral autonomic neuropathy; K70.9 Alcoholic liver disease, unspecified; M48.05 Spinal stenosis, thoracolumbar region; M47.815 Spondylosis without myelopathy or radiculopathy, thoracolumbar region; M48.061 Spinal stenosis, lumbar region without neurogenic claudication; I77.1 Stricture of artery; Z87.891 Personal history of nicotine dependence; Z85.46 Personal history of malignant neoplasm of prostate; Z99.81 Dependence on supplemental oxygen; Z98.49 Cataract extraction status, unspecified eye | CPT/HCPCS: 97597 ==